=== PATIENT | female | born 1950 | race Caucasian/White ===

== ENCOUNTER → 2020-09-24 13:19 | Outpatient (CLI) | payer MEDICARE, SELFPAY ==
--- NOTE | ~2020-09-24 | MM_ITS ---
EXAMINATION: MM screening [facility] BI w martha HISTORY: Screening mammogram TECHNIQUE: Craniocaudal and mediolateral oblique 3-D tomosynthesis images were obtained and synthetic 2-D images were generated. CAD analysis was submitted and interpreted. COMPARISON: 07/25/2019, 07/13/2018, 05/13/2017 BREAST PARENCHYMAL COMPOSITION: There are scattered areas of fibroglandular density. FINDINGS: There is no evidence of suspicious mass, calcification, or architectural distortion to sugg est malignancy in either breast. There has been no suspicious interval change. IMPRESSION: 1. No mammographic evidence of malignancy. 2. Recommend routine screening mammography in one year. BI-RADS Category 1: Negative Reviewed, dictated and finalized at location A. ER
--- NOTE | ~2020-09-24 | DEXA_ITS ---
Bone Density Report Name: Alma Rosa Chakraborty Age: 70 Sex: Female Ethnicity: White Date of : 1950 Indication: postmenopausal; screening for osteoporosis; height loss; hysterectomy; Referring Provider: Deana, Debby Patricia Study: Bone densitometry was performed. Exam Date: September 24, 2020 Accession number: [id number] Bone Density: Region BMD T-score Z-score Classification AP Spine (L1-L4) 1.104 0.5 2.8 Normal Femoral Neck (Left) 0.694 -1.4 0.5 Osteopenia Total Hip (Left) 1.176 1.9 3.6 Normal Femoral Neck (Right) 0.801 -0.4 1.5 Normal Total Hip (Right) 1.017 0.6 2.3 Normal Total Hip Mean 1.097 1.3 3.0 Normal World Health Organization criteria for BMD impression classify patients as: Normal (T-score at or above -1.0), Osteopenia (T-score between -1.0 and -2.5), or Osteoporosis (T-score at or below -2.5). 10-year Fracture Risk(1): Major Osteoporotic Fracture 9.1% Hip Fracture 1.3% Reported Risk Factors: [place] (), Neck BMD=0.694, BMI=41.4 (1) FRAX(R) Version 3.08. Fracture probability calculated for an untreated patient. Fracture probability may be lower if the patient has received treatment. Previous Exams: Region Exam Age BMD T-score BMD Change BMD Change Date g/cm2 vs Baseline vs Previous AP Spine(L1-L4) 09/24/2020 70 1.104 0.5 -0.073 0.058* 07/13/2018 68 1.045 0.0 -0.131 -0.028* 03/20/2016 66 1.073 0.2 -0.103 -0.049 12/08/2012 62 1.122 0.7 -0.054 0.058 11/10/2010 60 1.064 0.2 -0.112 0.017 10/31/2008 58 1.046 0.0 -0.130 0.028* 10/25/2006 56 1.019 -0.3 -0.157 -0.157 08/08/2003 53 1.176 1.2 Total Hip(Left) 09/24/2020 70 1.176 1.9 0.093 -0.014 07/13/2018 68 1.190 2.0 0.106 -0.011 03/20/2016 66 1.200 2.1 0.117 0.024 12/08/2012 62 1.177 1.9 0.093 0.057 11/10/2010 60 1.119 1.5 0.036 0.069 10/31/2008 58 1.050 0.9 -0.033 -0.151* 10/25/2006 56 1.201 2.1 0.118 0.118 08/08/2003 53 1.084 1.2 Total Hip(Right) 09/24/2020 70 1.017 0.6 0.003 0.008 07/13/2018 68 1.008 0.5 -0.005 -0.044* 03/20/2016 66 1.052 0.9 0.039 0.016 12/08/2012 62 1.037 0.8 0.023 0.034 11/10/2010 60 1.003 0.5 -0.010 0.025 10/31/2008 58 0.978 0.3 -0.035 -0.079*
== END ==
PROVIDERS: PCP Internal Medicine; Visit Provider Nurse Practitioner Obstetrics & Gynecology
DX: Z12.31 Encounter for screening mammogram for malignant neoplasm of breast (principal); Z78.0 Asymptomatic menopausal state; M85.852 Other specified disorders of bone density and structure, left thigh
CPT/HCPCS: 77063; 77067; 77080

== ENCOUNTER → 2021-12-08 12:29 | Outpatient (CLI) | payer MEDICARE, SELFPAY ==
--- NOTE | ~2021-12-08 | MM_ITS ---
EXAMINATION: MM screening [facility] BI w martha HISTORY: Screening TECHNIQUE: Craniocaudal and mediolateral oblique 3-D tomosynthesis images were obtained and synthetic 2-D images were generated. CAD analysis was submitted and interpreted. COMPARISON: Comparison to multiple prior studies sequentially, with oldest reviewed study dated 03/20. BREAST PARENCHYMAL COMPOSITION: There are scattered areas of fibroglandular density. FINDINGS: There is no evidence of suspicious mass, calcification, or architectural distortion to sugg est malignancy in either breast. There has been no suspicious interval change. IMPRESSION: 1. No mammographic evidence of malignancy. 2. Recommend routine screening mammography in one year. BI-RADS Category 1: Negative Reviewed, dictated and finalized at location A. [facility] [employer]
== END ==
PROVIDERS: PCP Nurse Practitioner Adult Health; Visit Provider Nurse Practitioner Adult Health
DX: Z12.31 Encounter for screening mammogram for malignant neoplasm of breast (principal)
CPT/HCPCS: 77063; 77067

== ENCOUNTER → 2023-03-03 12:52 | Outpatient (CLI) | payer MEDICARE, SELFPAY ==
--- NOTE | ~2023-03-03 | MM_ITS ---
EXAMINATION: MM screening [facility] BI w martha HISTORY: Screening mammogram TECHNIQUE: Craniocaudal and mediolateral oblique 3-D tomosynthesis images were obtained and synthetic 2-D images were generated. CAD analysis was submitted and interpreted. COMPARISON: 12/08/2021, 09/24/2020, 07/25/2019 bilateral screening mammogram examinations BREAST PARENCHYMAL COMPOSITION: There are scattered areas of fibroglandular density. FINDINGS: There is no evidence of suspicious mass, calcification, or architectural distortion to sugg est malignancy in either breast. There has been no suspicious interval change. IMPRESSION: 1. No mammographic evidence of malignancy. 2. Recommend routine screening mammography in one year. BI-RADS Category 1: Negative Reviewed, dictated and finalized at location A.
--- NOTE | ~2023-03-03 | DEXA_ITS ---
Bone Density Report Name: CHRIS WALDEN Age: 73 Sex: Female Ethnicity: White Date of : 1950 Indication: postmenopausal; screening for osteoporosis; height loss; prior fracture; hysterectomy; Referring Provider: SOTERO, MARYAM Geronimo Study: Bone densitometry was performed. Exam Date: March 03, 2023 Accession number: [id number] Bone Density: Region BMD T-score Z-score Classification AP Spine (L1-L4) 1.082 0.3 2.7 Normal Femoral Neck (Left) 0.638 -1.9 0.2 Osteopenia Total Hip (Left) 1.172 1.9 3.7 Normal Femoral Neck (Right) 0.806 -0.4 1.7 Normal Total Hip (Right) 1.020 0.6 2.4 Normal Total Hip Mean 1.096 1.3 3.1 Normal World Health Organization criteria for BMD impression classify patients as: Normal (T-score at or above -1.0), Osteopenia (T-score between -1.0 and -2.5), or Osteoporosis (T-score at or below -2.5). 10-year Fracture Risk(1): Major Osteoporotic Fracture 16% Hip Fracture 3.3% Reported Risk Factors: [place] (), Neck BMD=0.638, BMI=42.0, previous fracture (1) FRAX(R) Version 3.08. Fracture probability calculated for an untreated patient. Fracture probability may be lower if the patient has received treatment. Previous Exams: Region Exam Age BMD T-score BMD Change BMD Change Date g/cm2 vs Baseline vs Previous AP Spine(L1-L4) 03/03/2023 73 1.082 0.3 -0.094 -0.021 09/24/2020 70 1.104 0.5 -0.073 0.058* 07/13/2018 68 1.045 0.0 -0.131 -0.028* 03/20/2016 66 1.073 0.2 -0.103 -0.049 12/08/2012 62 1.122 0.7 -0.054 0.058 11/10/2010 60 1.064 0.2 -0.112 0.017 10/31/2008 58 1.046 0.0 -0.130 0.028* 10/25/2006 56 1.019 -0.3 -0.157 -0.157 08/08/2003 53 1.176 1.2 Total Hip(Left) 03/03/2023 73 1.172 1.9 0.089 -0.004 09/24/2020 70 1.176 1.9 0.093 -0.014 07/13/2018 68 1.190 2.0 0.106 -0.011 03/20/2016 66 1.200 2.1 0.117 0.024 12/08/2012 62 1.177 1.9 0.093 0.057 11/10/2010 60 1.119 1.5 0.036 0.069 10/31/2008 58 1.050 0.9 -0.033 -0.151* 10/25/2006 56 1.201 2.1 0.118 0.118 08/08/2003 53 1.084 1.2 Total Hip(Right) 03/03/2023 73 1.020 0.6 0.006 0.003 09/24/2020 70 1.017 0.6 0.003 0.008 07/13/2018 68 1.008 0.5 -0.005 -0.044* 03/20/2016 66 1.052 0.9 0.039
== END ==
PROVIDERS: PCP Family Medicine; Visit Provider Family Medicine
DX: Z12.31 Encounter for screening mammogram for malignant neoplasm of breast (principal); M85.9 Disorder of bone density and structure, unspecified; Z78.0 Asymptomatic menopausal state
CPT/HCPCS: 77063; 77067; 77080

== ENCOUNTER 2024-05-04 13:12 | Outpatient (CLI) | payer MEDICARE, SELFPAY ==
--- NOTE | ~2024-05-04 | MM_ITS ---
EXAMINATION: MM screening [facility] BI w martha HISTORY: Screening mammogram TECHNIQUE: Craniocaudal and mediolateral oblique 3-D tomosynthesis images were obtained and synthetic 2-D images were generated. CAD analysis was submitted and interpreted. COMPARISON: 03/03/2023, 12/08/2021, 09/24/2020 BREAST PARENCHYMAL COMPOSITION:Not Dense. There are scattered areas of fibroglandular density. FINDINGS: No suspicious mass, calcification, or architectural distortion are identified in either angela ast to suggest malignancy. There has been no suspicious interval change. IMPRESSION: No mammographic evidence of malignancy. Recommend routine screening mammography in one year. BI-RADS Category 1: Negative Reviewed, dictated and finalized at location .
== END 2024-05-04 13:13 ==
LOC: MICIMG 13:14
PROVIDERS: PCP Physician Assistant; Visit Provider Physician Assistant
DX: Z12.31 Encounter for screening mammogram for malignant neoplasm of breast (principal)
CPT/HCPCS: 77063; 77067

== ENCOUNTER 2025-05-07 12:26 | Outpatient (CLI) | payer MEDICARE, SELFPAY ==
--- NOTE | ~2025-05-07 | MM_ITS ---
EXAMINATION: MM screening [facility] BI w martha HISTORY: Screening mammogram TECHNIQUE: Craniocaudal and mediolateral oblique 3-D tomosynthesis images were obtained and synthetic 2-D images were generated. CAD analysis was submitted and interpreted. COMPARISON: 05/04/2024, 03/03/2023, 12/08/2021 BREAST PARENCHYMAL COMPOSITION:Not Dense. There are scattered areas of fibroglandular density. FINDINGS: No suspicious mass, calcification, or architectural distortion are identified in either angela ast to suggest malignancy. There has been no suspicious interval change. IMPRESSION: No mammographic evidence of malignancy. Recommend routine screening mammography in one year. BI-RADS Category 1: Negative Reviewed, dictated and finalized at location .
== END 2025-05-07 12:27 | disposition home or self-care (01) ==
LOC: MICIMG 12:27
PROVIDERS: PCP Family Medicine; Visit Provider Family Medicine
DX: Z12.31 Encounter for screening mammogram for malignant neoplasm of breast (principal)
CPT/HCPCS: 77063; 77067